=== PATIENT | female | born 1965 | race Caucasian/White ===

== ENCOUNTER 2020-10-08 04:20 | Inpatient (IN) | payer MEDICARE, MEDICAID, SELFPAY ==
--- NOTE | ~2020-10-08 | CT_ITS ---
EXAMINATION: CT ABDOMEN AND PELVIS WITH CONTRAST CLINICAL INFORMATION: Persistent flank pain. COMPARISON: CT abdomen and pelvis 10/08/2020 TECHNIQUE: Multidetector volumetric images were obtained from the superior aspect of the liver through the pubic symphysis following administration 85 mL of Omnipaque 350 intravenous contrast. Sagittal and coronal reformatted images were obtained on the technologist's workstation. Oral contrast: No. This CT examination was performed using dose optimization techniques as appropriate, variously including the following: *Automated exposure control *Adjustment of mA and/or kV according to patient size (this includes techniques or standardized protocols for targeted exams where dose is matched to indication/reason for exam; i.e. extremities or head) *Use of iterative reconstruction technique DLP: 284 mGy-cm FINDINGS: LUNG BASES: There is new left lower lobe subsegmental atelectasis and small left pleural effusion. LIVER, GALLBLADDER, AND BILIARY TREE: Extensive polycystic disease of the liver is again noted. There is no biliary duct dilatation. The gallbladder is unremarkable with no evidence of radiopaque gallstones, gallbladder wall thickening, or obvious pericholecystic inflammatory changes. PANCREAS: Unremarkable. SPLEEN: Unremarkable. ADRENAL GLANDS: Unremarkable. KIDNEYS AND URETERS: Extensive polycystic kidney disease is again noted. This includes simple-appearing cysts and hyperdense hemorrhagic cysts. There are a few scattered calcifications. There is no hydronephrosis. There are no ureteral calculi. There is worsening streaky inflammatory change around the superior pole of the left kidney. BLADDER: Unremarkable. GASTROINTESTINAL TRACT: The small and large bowel are unremarkable. The appendix is normal. ABDOMINAL WALL: There is a stable fat-containing umbilical hernia. LYMPH NODES: There is a slight increase in size in the left periaortic lymph nodes, the largest of which measures 1.7 cm in diameter, likely reactive. VASCULAR: Unremarkable. PELVIC VISCERA: There is a new moderate amount of free fluid in the pelvis. OSSEOUS STRUCTURES: Unremarkable. CT/CT abdomen pelvis w con IMPRESSION: 1. New mild left lower lobe subsegmental atelectasis and small left pleural effusion. 2. Worsening perinephric inflammatory changes around the superior pole of the left kidney. Consider pyelonephritis. 3. Slight increase in left para-aortic lymph nodes which are likely reactive. 4. New moderate amount of free fluid in the pelvis.
--- NOTE | ~2020-10-08 | CT_ITS ---
EXAMINATION: CT ABDOMEN AND PELVIS WITHOUT CONTRAST CLINICAL INFORMATION: Left flank pain. History of kidney abscess and polycystic disease. COMPARISON: None TECHNIQUE: Multidetector volumetric imaging was performed from the superior aspect of the liver through the pubic symphysis. This CT examination was performed using dose optimization techniques as appropriate, variously including the following: Automated exposure control. Adjustment of mA and/or kV according to patient size (this includes techniques or standardized protocols for targeted exams where dose is matched to indication/reason for exam; i.e. extremities or head). Use of iterative reconstruction technique. DLP: 385 mGy-cm FINDINGS: LUNG BASES: The visualized lung bases are unremarkable. LIVER, GALLBLADDER, AND BILIARY TREE: There are multiple liver cysts. The largest measures 6.5 cm. The gallbladder is normal. There is no biliary duct dilatation. PANCREAS: Unremarkable. SPLEEN: Unremarkable. ADRENAL GLANDS: Unremarkable. KIDNEYS AND URETERS: Both kidneys are enlarged and have multiple cysts consistent with known diagnosis of polycystic kidney disease. Both kidneys measure approximately 14 cm in length. There are multiple bilateral simple cysts. Largest right simple cyst measures 5 cm in the upper pole. Largest left simple cyst measures 3.5 x 4.5 cm in the upper pole. There are multiple round high attenuation lesions in both kidneys. These may represent complex or hyperdense cysts. There are several left renal stones. There are 2 adjacent 7 mm peripheral calcifications in the cortex of the lower pole of the left kidney. It is uncertain whether these represent stones or are related to cysts or cortical calcifications. There are smaller 2 to 3 mm left upper and lower pole renal stones. No hydronephrosis, ureteral dilatation or ureteral stone is seen. There is no perinephric collection. There is mild stranding of the perinephric fat and thickening of the pararenal fascia adjacent to the upper pole of the left kidney. BLADDER: Unremarkable. GASTROINTESTINAL TRACT: The small and large bowel are unremarkable. The appendix is unremarkable. ABDOMINAL WALL: There is a small umbilical hernia containing fat. LYMPH NODES: There are small retroperitoneal and small bowel mesentery lymph nodes. No enlarged lymph nodes are seen. VASCULAR: Unremarkable. PELVIC VISCERA: Unremarkable. OSSEOUS STRUCTURES: Unremarkable. CT/CT abdomen pelvis wo con IMPRESSION: Enlarged kidneys with multiple cysts compatible with patient's diagnosis of polycystic kidney disease. Some cysts appear to represent simple cysts. There are multiple round high attenuation lesions probably representing complex cysts. Left renal stones. No hydronephrosis, ureteral dilatation or ureteral stone seen. Mild perinephric stranding and thickening of the perinephric fascia adjacent to the upper pole of the left kidney. Multiple liver cysts.
[2020-10-08 04:55] VITALS: BP 152/92; PULSE 92; RESP 22; TEMP 37.5; O2SAT 98; BMI 42.2
--- NOTE | 2020-10-08 05:06 | PC.NURSE ---
pt a&O. pt in position guarding llq. pt reports 10/10 pain. partner at the bedside. provider aware. Will continue to monitor.
[2020-10-08] MEDS: ondansetron HCL 4 MG/2 ML VIAL IVPUSH ×2 (06:33→20:45)
[2020-10-08] MEDS: 0.9 % Sodium Chloride 1,000 ML 999 ML IV (06:33)
[2020-10-08 06:43] LABS: Basophils Percent Auto 0.2 % (0-2); Eosinophils Percent Auto 0.1 % (0-4); Hematocrit 39.9 % (37-47); Hemoglobin 13.7 g/dl (12.0-16.0); Imm Gran Pct Auto 0.5 % (0.0-0.4); Lymphocytes Absolute Auto 0.7 X10*3/uL (1.2-4.9); Lymphocytes Percent Auto 3.8 % (20-40); MANUAL DIFF FLAG SCAN; Mean Corpuscular HGB Conc 34.3 g/dl (31.0-35.0); Mean Corpuscular Hemoglobin 32.5 pg (27.0-33.0); Mean Corpuscular Volume 94.8 fL (80-98); Mean Platelet Volume 10.1 fL (9.4-12.3); Monocytes Absolute Auto 0.9 X10*3/uL (0.1-1.2); Monocytes Percent Auto 4.9 % (2-11); Neutrophils Absolute Auto 16.6 X10*3/uL (2.0-8.3); Neutrophils Percent Auto 90.5 % (45-73); Platelet Count 256 X10*3/uL (160-400); Red Blood Count 4.21 X10*6/uL (4.20-5.50); Red Cell Distribution Width 12.6 % (11.0-16.0); SCAN SMEAR FLAG 1; White Blood Count 18.3 X10*3/uL (4.8-10.8)
[2020-10-08 06:45] VITALS: RESP 22
[2020-10-08] MEDS: fentaNYL citrate/PF 100 MCG/2 ML VIAL 25 MCG IVPUSH (06:45)
--- NOTE | 2020-10-08 06:50 | PC.NURSE ---
pt continues to have abd pain medicated per mar. Iv placed, labs drawn. significant other at the bedside.
[2020-10-08 07:03] LABS: Alanine Aminotransferase 15 U/L (0-31); Albumin Level 4.4 g/dL (3.5-5.0); Alkaline Phosphatase 73 U/L (39-117); Anion Gap 13 (12-20); Aspartate Amino Transferase 19 U/L (5-31); Bilirubin Total 0.5 mg/dL (0.0-1.0); Blood Urea Nitrogen 18 mg/dL (9-16); Calcium 9.7 mg/dL (8.4-10.2); Carbon Dioxide 23 mmol/L (22-29); Chloride 108 mmol/L (96-108); Creatinine Clr Calc Pharmacy 55.6; Estimated Glomerular Filt Rate 37; Glucose Random 150 mg/dL (60-115); Lipase 15 U/L (8-78); Potassium 4.1 mmol/L (3.3-5.1); Sodium 140 mmol/L (135-145); Total Protein 6.4 g/dL (6.5-8.0)
[2020-10-08 07:33] LABS: SLIDE REVIEW VERIFIED
--- NOTE | 2020-10-08 08:07 | ED.ABDPAIN ---
HPI - Abdominal Pain General Chief Complaint: Abdominal Pain Stated Complaint: cyst Time Seen by Provider: 10/08/20 06:18 Source: patient and other Mode of arrival: ambulatory History of Present Illness HPI narrative: 55-year-old female with history MS, ADPKD who presents with acute, severe onset left flank pain associated with chills and multiple episodes of nonbloody/nonbilious vomiting but denies any fevers, diarrhea, urinary pain/burning/frequency. She otherwise denies any recent cough and states that she has received both of her COVID-19 vaccines. In addition, patient endorses that she has had renal cysts rupture as well as prior episodes abscesses. Related Data Allergies Allergy/AdvReac Type Severity Reaction Status Date / Time ciprofloxacin [From Cipro] AdvReac Severe Blister Verified 10/08/20 06:25 ferrous fumarate AdvReac Severe Anaphylaxis Verified 10/08/20 06:25 glatiramer (copolymer 1) AdvReac Severe Blister Verified 10/08/20 06:25 [From Copaxone] Sulfa (Sulfonamide AdvReac Severe Blister Verified 10/08/20 06:25 Antibiotics) bupropion [From Wellbutrin] AdvReac Mild Unknown Verified 10/08/20 06:25 Review of Systems Review of Systems Pertinent positives and negatives as stated in HPI 10 point review of systems is otherwise negative. Physical Exam Vital Signs: Vital Signs: Last Vital Signs Temp 99.5 F 10/08/20 04:55 Pulse 92 10/08/20 04:55 Resp 22 H 10/08/20 06:45 BP 152/92 H 10/08/20 04:55 Pulse Ox 98 10/08/20 04:55 Body Mass Index 42.2 VITAL SIGNS: Reviewed. GENERAL: Well developed, well nourished, moderate to severe distress. HEAD: Normocephalic/atraumatic EYES: PERRLA, EOMI EARS: Ext canals without abnormality, TMs non-bulging and non-erythematous NOSE: Nares patent bilateral OROPHARYNX: no oral lesions noted, posterior pharynx clear, dry mucosa NECK: Supple, no adenopathy LUNGS: Normal breath sounds. No adventitious sounds or accessory muscle use. SpO2<98> CARDIOVASCULAR: Regular rate and rhythm without noted murmurs, no JVD or lower extremity edema. ABDOMEN: Soft, tenderness on palpation over left upper quadrant, non-distended with bowel sounds, voluntary guarding SKIN: Inspection of the skin reveals no rashes NEUROLOGIC: Alert and oriented x 4. Strength and sensation to light touch were grossly intact x 4. Course Course Course Narrative: 55-year-old female with history and clinical presentation concerning for possible rupture versus abscess of kidney. Patient provided with pain control, IV fluids, and antiemetics. Review all investigations suggestive acute left renal pathology, patient has received antibiotics, lactic acid, as well as blood cultures. In addition, patient has received pain medication, IV fluids, and antiemetics and on re-evaluation she remains hemodynamically stable and reports improvement in her pain level and is no longer nauseous. Awaiting CT scan, however patient will be admitted. Signed out to Dr Cook for CT scan results. MDM - Abdominal Pain Lab Data Result diagrams: 10/08/20 06:35 10/08/20 06:35 Labs: Lab Results 10/08/20 10/08/20 10/08/20 Range/Units 06:35 06:35 08:04 WBC 18.3 H (4.8-10.8) X10*3/uL RBC 4.21 (4.20-5.50) X10*6/uL Hgb 13.7 (12.0-16.0) g/dl Hct 39.9 (37-47) % MCV 94.8 (80-98) fL MCH 32.5 (27.0-33.0) pg MCHC 34.3 (31.0-35.0) g/dl RDW 12.6 (11.0-16.0) % Plt Count 256 (160-400) X10*3/uL MPV 10.1 (9.4-12.3) fL Immature Gran % (Auto) 0.5 H (0.0-0.4) % Neut % (Auto) 90.5 H (45-73) % Lymph % (Auto) 3.8 L (20-40) % [place] % (Auto) 4.9 (2-11) % Eos % (Auto) 0.1 (0-4) % Baso % (Auto) 0.2 (0-2) % Lymph # (Auto) 0.7 L (1.2-4.9) X10*3/uL [place] # (Auto) 0.9 (0.1-1.2) X10*3/uL Eos # (Auto) 0.0 (0.0-0.4) X10*3/uL Baso # (Auto) 0.0 (0.0-0.2) X10*3/uL Abs Immat Gran (auto) 0.10 H (0.00-0.03) X10*3/uL Absolute Neuts (auto) 16.6 H (2.0-8.3) X10*3/uL Absolute Nucleated RBC 0.000 (0.0-0.012) X10*3/uL Nucleated RBC % (auto) 0.0 (0.0-0.2) /100WBC Smear Tech's Comments VERIFIED Sodium 140 (135-145) mmol/L Potassium 4.1 (3.3-5.1) mmol/L Chloride 108 (96-108) mmol/L Carbon Dioxide 23 (22-29) mmol/L Anion Gap 13 (12-20) BUN 18 H (9-16) mg/dL Creatinine 1.48 H (0.5-1.4) mg/dL Estim Creat Clear Calc 55.6 Estimated GFR 37 Random Glucose 150 H (60-115) mg/dL Lactic Acid 1.6 (0.5-2.0) mmol/L Calcium 9.7 (8.4-10.2) mg/dL Total Bilirubin 0.5 (0.0-1.0) mg/dL AST 19 (5-31) U/L ALT 15 (0-31) U/L Alkaline Phosphatase 73 (39-117) U/L Total Protein 6.4 L (6.5-8.0) g/dL Albumin 4.4 (3.5-5.0) g/dL Lipase 15 (8-78) U/L COVID-19 ([facility]) (Negative) COVID-19 Clin Com 10/08/20 Range/Units 08:25 WBC (4.8-10.8) X10*3/uL RBC (4.20-5.50) X10*6/uL Hgb (12.0-16.0) g/dl Hct (37-47) % MCV (80-98) fL MCH (27.0-33.0) pg MCHC (31.0-35.0) g/dl RDW (11.0-16.0) % Plt Count (160-400) X10*3/uL MPV (9.4-12.3) fL Immature Gran % (Auto) (0.0-0.4) % Neut % (Auto) (45-73) % Lymph % (Auto) (20-40) % [place] % (Auto) (2-11) % Eos % (Auto) (0-4) % Baso % (Auto) (0-2) % Lymph # (Auto) (1.2-4.9) X10*3/uL [place] # (Auto) (0.1-1.2) X10*3/uL Eos # (Auto) (0.0-0.4) X10*3/uL Baso # (Auto) (0.0-0.2) X10*3/uL Abs Immat Gran (auto) (0.00-0.03) X10*3/uL Absolute Neuts (auto) (2.0-8.3) X10*3/uL Absolute Nucleated RBC (0.0-0.012) X10*3/uL Nucleated RBC % (auto) (0.0-0.2) /100WBC Smear Tech's Comments Sodium (135-145) mmol/L Potassium (3.3-5.1) mmol/L Chloride (96-108) mmol/L Carbon Dioxide (22-29) mmol/L Anion Gap (12-20) BUN (9-16) mg/dL Creatinine (0.5-1.4) mg/dL Estim Creat Clear Calc Estimated GFR Random Glucose (60-115) mg/dL Lactic Acid (0.5-2.0) mmol/L Calcium (8.4-10.2) mg/dL Total Bilirubin (0.0-1.0) mg/dL AST (5-31) U/L ALT (0-31) U/L Alkaline Phosphatase (39-117) U/L Total Protein (6.5-8.0) g/dL Albumin (3.5-5.0) g/dL Lipase (8-78) U/L COVID-19 ([facility]) Negative (Negative) COVID-19 Clin Com See Note Discharge Plan Discharge Clinical Impression: Structural abnormality of kidney [facility] Past Medical History Source: nursing notes reviewed Social History Social History Alcohol intake: never Patient Tobacco Use Status: Current everyday Tobacco user Use of substances other than those prescribed or required for medical reasons: No Advance Directives: No Advance Directives Information Provided: Yes
[2020-10-08] MEDS: HYDROmorphone HCl 0.5 MG/0.5 ML SYRINGE IVPUSH (08:09)
[2020-10-08] MEDS: cefTRIAXone sodium 1 GM in 0.9 % Sodium Chloride 50 ML IV (08:12)
[2020-10-08 08:25] LABS: Lactic Acid 1.6 mmol/L (0.5-2.0)
[2020-10-08 08:44] LABS: COVID-19 Test Negative (Negative)
[2020-10-08] MEDS: HYDROmorphone HCl 2 MG/ML VIAL 1 MG IVPUSH (09:55)
[2020-10-08 10:29] VITALS: BP 121/71; PULSE 96; RESP 15; TEMP 36.9; O2SAT 97
--- NOTE | 2020-10-08 14:05 | PM.IMHP ---
History of Present Illness Date of Service: 10/08/20 Chief Complaint: L flank pain This is a 55 yo F with a PMH as outlined below who presents to the hospital with complaints of L flank pain of 3 days duration. She reports that she was in her usual state of health, but about 3 days prior to admission, she noticed that she started having L flank discomfort which progressed over the subsequent days to the point that she was unable to keep anything down and was laying in bed. At the urging of her boyfriend (who is bedside), she came to the emergency room. She denies any associated dysuria, urgency, frequecy. She denies any hematuria. She denies any abodminal pain. She does endorse nausea and vomiting, which started as her pain severity progressed. She endorses subjective fevers (which she reports she has when she is in pain) and diarrhea (which she endorses is chronic secondary to her IBS). Patients work up in the ED revealed a leukocytosis of 18k with a left shift. Her BMP was essentially benign. She underwent a CT scan of the abdomen and pelvis which showed her known polycystic kidneys. There was no urteral stones, dilatation or hydronephrosis. Mild perinephric stranding was also noted (see full report). The ED team discussed the case d/w Urology who felt possibility of a ruputured cyst with hemorrhage. Despite 3 doses of IV narcotics, she felt no pain relief. She will be admitted for further pain management as well the possibility of concurrent pyelonephritis / cyst hemorrhage. Review of Systems Review of Systems: General - subjective fevers HEENT -denies blurred vision, denies headache, denies sore throat Cardiovascular - denies chest pain or palpitations, denies edema Respiratory - denies shortness of breath, coughing, wheezing Gastrointestinal - no abdominal pain, +nausea/vomiting; +chronic diarrhea - L flank pain, no dysuria, no frequency or urgency Musculoskeletal - denies back pain, denies hip pain, denies knee pain, denies shoulder pain Neurological - denies any focal weakness or numbness Skin, denies any bruising or redness Psychiatric - denies any suicidal ideation, hallucinations, homicidal ideation Endocrinology - denies intolerance to hot / cold temperatures [facility] Medical History (Updated 10/08/20 @ 14:50 by Adrian Gil MD) 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 Bipolar disorder Brain aneurysm Hypertension Liver cyst Nephrolithiasis Relapsing remitting multiple sclerosis Vitamin D deficiency Family History (Updated 10/08/20 @ 14:31 by Adrian Gil MD) Other ADPKD (autosomal dominant polycystic kidney disease) Social History Alcohol intake: never Patient Tobacco Use Status: Current everyday Tobacco user Use of substances other than those prescribed or required for medical reasons: No Advance Directives: No Advance Directives Information Provided: Yes Meds Allergies Allergy/AdvReac Type Severity Reaction Status Date / Time ciprofloxacin [From Cipro] AdvReac Severe Blister Verified 10/08/20 06:25 ferrous fumarate AdvReac Severe Anaphylaxis Verified 10/08/20 06:25 glatiramer (copolymer 1) AdvReac Severe Blister Verified 10/08/20 06:25 [From Copaxone] Sulfa (Sulfonamide AdvReac Severe Blister Verified 10/08/20 06:25 Antibiotics) bupropion [From Wellbutrin] AdvReac Mild Unknown Verified 10/08/20 06:25 Physical Exam Vital Signs and Narrative: Vital Signs: Last Vital Signs Temp 98.5 F 10/08/20 10:29 Pulse 96 10/08/20 10:29 Resp 15 10/08/20 10:29 BP 121/71 10/08/20 10:29 Pulse Ox 97 10/08/20 10:29 Body Mass Index 42.2 Const: Other: Constitutional - Awake and Alert, In pain Eyes - PERRLA, EOMI Cardiovascular - S1S2, RRR, No edema Respiratory - Normal lung expansion, Normal respiratory effort, No respiratory distress, CTA bilaterally Gastrointestinal - NT / ND; +BS; No rebound or guarding - L CVA tenderness Extremities - no calf tenderness bilaterally, no swelling Musculoskeletal - Normal inspection, normal ROM Skin - Warm/Dry Neurological - Alert & oriented x3, No focal deficit Psychological - Appropriate affect Results Labs CBC and Chem 7: 10/08/20 06:35 10/08/20 06:35 Labs: Laboratory Results - last 24 hr 10/08/20 10/08/20 10/08/20 06:35 06:35 08:04 MCV 94.8 MCH 32.5 MCHC 34.3 RDW 12.6 Plt Count 256 MPV 10.1 Immature Gran % (Auto) 0.5 H Neut % (Auto) 90.5 H Lymph % (Auto) 3.8 L [place] % (Auto) 4.9 Eos % (Auto) 0.1 Baso % (Auto) 0.2 Lymph # (Auto) 0.7 L [place] # (Auto) 0.9 Eos # (Auto) 0.0 Baso # (Auto) 0.0 Abs Immat Gran (auto) 0.10 H Absolute Neuts (auto) 16.6 H Absolute Nucleated RBC 0.000 Nucleated RBC % (auto) 0.0 Smear Tech's Comments VERIFIED Anion Gap 13 Estim Creat Clear Calc 55.6 Estimated GFR 37 Random Glucose 150 H Lactic Acid 1.6 Calcium 9.7 Total Bilirubin 0.5 AST 19 ALT 15 Alkaline Phosphatase 73 Total Protein 6.4 L Albumin 4.4 Lipase 15 COVID-19 ([facility]) COVID-19 Clin Com 10/08/20 08:25 MCV MCH MCHC RDW Plt Count MPV Immature Gran % (Auto) Neut % (Auto) Lymph % (Auto) [place] % (Auto) Eos % (Auto) Baso % (Auto) Lymph # (Auto) [place] # (Auto) Eos # (Auto) Baso # (Auto) Abs Immat Gran (auto) Absolute Neuts (auto) Absolute Nucleated RBC Nucleated RBC % (auto) Smear Tech's Comments Anion Gap Estim Creat Clear Calc Estimated GFR Random Glucose Lactic Acid Calcium Total Bilirubin AST ALT Alkaline Phosphatase Total Protein Albumin Lipase COVID-19 ([facility]) Negative COVID-19 Clin Com See Note Imaging Radiologist's Impressions: Impressions Abdomen/Pelvis CT 10/08/20 07:03 IMPRESSION: Enlarged kidneys with multiple cysts compatible with patient's diagnosis of polycystic kidney disease. Some cysts appear to represent simple cysts. There are multiple round high attenuation lesions probably representing complex cysts. Left renal stones. No hydronephrosis, ureteral dilatation or ureteral stone seen. Mild perinephric stranding and thickening of the perinephric fascia adjacent to the upper pole of the left kidney. Multiple liver cysts. Assessment and Plan (1) Intractable pain: Status: Acute This is a 55 yo F with a PMH of ADPKD, MS, migranes who presents to the ED with complaints of progressive L pain of 3 days duration. Patients work up in the ED is concerning for a ruptured renal cysts as well as possible pyelonephritis. She will be admitted for further work up. 1. Intractable L flank pain patient received IV narcotics x 3 doses. Required IV dilaudid 1mg which gave her about 2-3 hours of relief, but the pain returned. will start IV dilaudid 1mg q4 hours PRN 2. L evelia-nephric stranding concern of pyelo vs ruptured cysts vs bleed check h/h this afternoon will consult urology empiric IV rocephin -- no evidence of sepsis at this time 3. ADPKD / CKD, likely stage 2/3 monitor renal function 4. HTN resume home meds once med rec done continue her baseline meds, as appropriate -- once med rec done. Full Code DVT pptx, Mechanical in light of possible hemorrhagic cyst Due to the severity of the patients pain, along with the potential for rutpured cyst/hemorrhage, possible pyelonephritis - I anticipate that she will need at least 2 midnights in the hospital. Quality Stroke Does the patient have a stroke diagnosis?: No VTE Prior VTE?: No VTE Risk Level:: Medical - moderate - high VTE Device Contraindication: N/A - Device Ordered VTE Drug Contraindication: Treatment Not Indicated
[2020-10-08] MEDS: HYDROmorphone HCl 0.5 MG/0.5 ML SYRINGE 1 MG IVPUSH ×2 (14:24→18:24)
[2020-10-08] MEDS: Lactated Ringers 1,000 ML 100 ML IVCONT ×2 (14:24→18:24)
--- NOTE | 2020-10-08 15:34 | PHA.MEDREC ---
Pharmacy Consult ? Medication Reconciliation Pharmacy has completed the medication reconciliation.\ Elke Beard, PharmD [phone]
[2020-10-08 16:00] VITALS: BP 116/57; PULSE 68; TEMP 38.1; O2SAT 96
[2020-10-08] MEDS: 0.9 % Sodium Chloride Flush 3 ML SYRINGE IVFLUSH (18:24)
[2020-10-08] MEDS: Acetaminophen 325 MG TABLET 650 MG PO (20:45)
[2020-10-09] VITALS (7 sets, daily range): BP systolic 100–136; BP diastolic 55–66; PULSE 80–86; RESP 14–19; TEMP 36.5–37.2; O2SAT 98–99
[2020-10-09] MEDS: HYDROmorphone HCl 0.5 MG/0.5 ML SYRINGE 1 MG IVPUSH ×6 (00:45→22:34)
[2020-10-09 07:11] LABS: Basophils Percent Auto 0.2 % (0-2); Eosinophils Percent Auto 0.1 % (0-4); Hematocrit 33.6 % (37-47); Hemoglobin 11.5 g/dl (12.0-16.0); Imm Gran Pct Auto 0.6 % (0.0-0.4); Lymphocytes Absolute Auto 1.1 X10*3/uL (1.2-4.9); Lymphocytes Percent Auto 6.6 % (20-40); MANUAL DIFF FLAG NO; Mean Corpuscular HGB Conc 34.2 g/dl (31.0-35.0); Mean Corpuscular Hemoglobin 32.4 pg (27.0-33.0); Mean Corpuscular Volume 94.6 fL (80-98); Mean Platelet Volume 10.7 fL (9.4-12.3); Monocytes Percent Auto 6.1 % (2-11); Neutrophils Absolute Auto 14.1 X10*3/uL (2.0-8.3); Neutrophils Percent Auto 86.4 % (45-73); Platelet Count 188 X10*3/uL (160-400); Red Blood Count 3.55 X10*6/uL (4.20-5.50); Red Cell Distribution Width 12.8 % (11.0-16.0); White Blood Count 16.3 X10*3/uL (4.8-10.8)
[2020-10-09 07:52] LABS: Anion Gap 13 (12-20); Blood Urea Nitrogen 11 mg/dL (9-16); Calcium 8.6 mg/dL (8.4-10.2); Carbon Dioxide 22 mmol/L (22-29); Chloride 106 mmol/L (96-108); Creatinine Clr Calc Pharmacy 73.5; Estimated Glomerular Filt Rate 51; Glucose Random 140 mg/dL (60-115); Potassium 3.9 mmol/L (3.3-5.1); Sodium 137 mmol/L (135-145)
[2020-10-09] MEDS: Lactated Ringers 1,000 ML 100 ML IVCONT ×2 (08:18→18:08)
[2020-10-09] MEDS: ondansetron HCL 4 MG/2 ML VIAL IVPUSH ×4 (08:21→22:34)
[2020-10-09] MEDS: cefTRIAXone sodium 1 GM in 0.9 % Sodium Chloride 50 ML IV (08:29)
[2020-10-09 10:48] LABS: Glucose Urine UA NEG (NEG); Leukocyte Esterase Urine TRACE (NEG); Nitrite Urine NEG (NEG); UACC Culture Trigger YES; Urine Blood TRACE (NEG); Urine Ketones NEG (NEG); Urine Protein NEG (NEG-TRACE)
[2020-10-09 10:51] LABS: Appearance Urine HAZY; Color Urine YELLOW
[2020-10-09 10:59] LABS: Mucus Urine TRACE /LPF; Squamous Epithelial Cell Urine 1+ /LPF
--- NOTE | 2020-10-09 13:06 | HO.PM.IMPN ---
Subjective Subjective Date of Service: 10/09/20 Interval History: Seen and examined this morning Follow-up for abdominal pain. Reports ongoing left-sided abdominal pain. Nausea no vomiting. Denies fever, chills Review of Systems Review of Systems: Yes all other systems are reviewed and are negative Constitutional Constitutional: Denies chills and Denies fever(s) Cardiovascular Cardiovascular: Denies chest pain Respiratory Respiratory: Denies cough Physical Exam Vital Signs: Vital Signs: Last Vital Signs Temp 98.2 F 10/09/20 11:25 Pulse 85 10/09/20 11:25 Resp 16 10/09/20 11:25 BP 112/57 L 10/09/20 11:25 Pulse Ox 99 10/09/20 11:25 Body Mass Index 42.2 Const: Nutritional Appearance: well nourished Orientation/consciousness: patient oriented x3 HENMT: Head: Yes normocephalic and Yes atraumatic Eyes: Sclerae: sclerae normal Chest: Chest palpation & inspection: normal inspection of the chest Resp: Effort & Inspection: normal respiratory effort and no respiratory distress Cardio: Rate: regular rate Rhythm: regular rhythm GI: Other: pain with very minimal palpation, primarily left side of abdomen. Nondistended. Positive bowel sounds. No CVA tenderness Palpation (GI): Soft to palpation Neuro: General: patient oriented x3 Cranial nerves: Yes CN's II-XII intact bilaterally and Yes Bilaterally intact EOM present Objective Data Current Medications Generic Name Dose Route Start Last Admin Trade Name Freq PRN Reason Stop Dose Admin Acetaminophen 650 mg 10/08/20 14:00 10/08/20 20:45 Acetaminophen 325 Mg Tablet PO 650 mg Q6H PRN Administration Pain, Mild (Pain Scale 1-3) Bupropion HCl 150 mg 10/09/20 09:00 10/09/20 08:12 Bupropion Hcl Xl 150 Mg Tab.Er.24h PO Not Given DAILY SURYA Clonazepam 0.5 mg 10/08/20 15:36 Clonazepam 0.5 Mg Tablet PO BEDTIME PRN Insomnia Cyclobenzaprine HCl 10 mg 10/08/20 15:36 Cyclobenzaprine Hcl 10 Mg Tablet PO BEDTIME PRN Cramps Folic Acid 1 mg 10/09/20 09:00 10/09/20 08:12 Folic Acid 1 Mg Tablet PO Not Given DAILY SURYA Hydromorphone HCl 1 mg 10/08/20 14:00 10/09/20 09:30 Hydromorphone Hcl 0.5 Mg/0.5 Ml Syringe IVPUSH 1 mg Q4H PRN Administration Pain, Severe (Pain Scale 7-10) Protocol Ceftriaxone Sodium 1 gm/ 50 mls @ 100 mls/hr 10/09/20 08:00 10/09/20 09:11 Sodium Chloride IV Infused Q24H SURYA Infusion Lactated Ringer's 1,000 mls @ 100 mls/hr 10/08/20 14:00 10/09/20 08:18 Lr IVCONT 100 mls/hr .Q10H SURYA Administration Non-Formulary Medication 1 tab 10/08/20 21:00 Bupropion Hcl PO BEDTIME [facility] Ondansetron HCl 4 mg 10/08/20 18:58 10/09/20 08:21 Ondansetron Hcl 4 Mg/2 Ml Vial IVPUSH 4 mg Q4H PRN Administration nausea/vomtiing Pharmacy Consult 1 each 10/08/20 14:47 Consult Rx Perform Med Rec MISCELLANE ONCE PRN Consult order Sodium Chloride 3 ml 10/08/20 16:00 10/09/20 07:10 0.9 % Sodium Chloride Flush 3 Ml Syringe IVFLUSH Not Given QSHIFT [facility] Valacyclovir HCl 1,000 mg 10/09/20 09:00 10/09/20 08:12 Valacycyclovir Hcl 1,000 Mg Tablet PO Not Given DAILY [facility] Labs CBC & Chem 7: 10/09/20 06:39 10/09/20 06:39 Labs: Laboratory Results - last 24 hr 10/09/20 10/09/20 10/09/20 06:39 06:39 10:30 MCV 94.6 MCH 32.4 MCHC 34.2 RDW 12.8 Plt Count 188 D MPV 10.7 Immature Gran % (Auto) 0.6 H Neut % (Auto) 86.4 H Lymph % (Auto) 6.6 L [place] % (Auto) 6.1 Eos % (Auto) 0.1 Baso % (Auto) 0.2 Lymph # (Auto) 1.1 L [place] # (Auto) 1.0 Eos # (Auto) 0.0 Baso # (Auto) 0.0 Abs Immat Gran (auto) 0.10 H Absolute Neuts (auto) 14.1 H Absolute Nucleated RBC 0.000 Nucleated RBC % (auto) 0.0 Anion Gap 13 Estim Creat Clear Calc 73.5 Estimated GFR 51 Random Glucose 140 H Calcium 8.6 D Urine Color YELLOW Urine Appearance HAZY Urine pH 6.0 Ur Specific [place] 1.020 Urine Protein NEG Urine Glucose (UA) NEG Urine Ketones NEG Urine Blood TRACE Urine Nitrite NEG Ur Leukocyte Esterase TRACE H Urine RBC 1-4 Urine WBC 10-14 H Ur Squamous Epith Cells 1+ Urine Bacteria NONE Urine Mucus TRACE Microbiology Microbiology Results: Microbiology 10/08/20 08:04 Blood Culture - Preliminary Blood - Venous No growth after 24 hours. 10/08/20 08:04 Blood Culture - Preliminary Blood - Venous No growth after 24 hours. Assessment and Plan (1) Intractable pain: Status: Acute Assessment and Plan: This is a 55 yo F with a PMH of ADPKD, MS, migranes who presents to the ED with complaints of progressive L pain of 3 days duration. Patients work up in the ED is concerning for a ruptured renal cysts as well as possible pyelonephritis. She will be admitted for further work up. 1. Intractable L flank pain Reports pain is similar to previous episodes of cyst rupture -continue IV Dilaudid for pain 2. L evelia-nephric stranding concern of pyelo vs ruptured cysts vs bleed -urology consult -urinalysis not highly suggestive of infection however will continue empiric antibiotics until seen by Urology -blood cultures negative to date 3. 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 HTN BP on softer side Will hold Philip -monitor blood pressure closely Mood Continue home medications Full Code DVT pptx, Mechanical in light of possible hemorrhagic cyst Quality Stroke Does the patient have a stroke diagnosis?: No VTE Prior VTE?: No VTE Risk Level:: Medical - moderate - high VTE Device Contraindication: N/A - Device Ordered VTE Drug Contraindication: Treatment Not Indicated
--- NOTE | 2020-10-09 13:20 | MHC.CM.PN ---
Addendum entered by Doretha Waller 10/09/20 13:30: PT PREFERS TO BE CALLED [facility] Original Note: CM MET WITH PT AND HER S/O WHO WAS AT BEDSIDE. PT REPORTS SHE LIVES WITH HER PARTNER AND WAS RECENTLY APPROVED FOR 10.5 HOURS OF COIL WINDER SERVICES PER WEEK WHICH HER CHILD WILL BE PROVIDING. PT REPORTS SHE HAS A CANE, COMMODE, GRAB BARS AND RAILINGS ON BOTH SIDES OF THE STAIRS AT HOME. PT PROVIDED A PAPER WITH ALL OF HER DOCTORS, MEDICATIONS, ALLERGIES, AND RECENT HOSPITALIZATIONS. A COPY WAS PLACED IN CHART. PT REPORTS SHE WAS RECENTLY PRESCRIBED TALVAPTAN BY HER EXTERNAL GRINDER TENDER HOWEVER SHE IS SUPPOSED TO TAKE 4 PILLS A DAY AND THE PHARMACY ONLY GAVE HER 30 PILLS. PT STATES THEY THOUGHT THAT WOULD BE A 30 DAY SUPPLY HOWEVER SHE ALSO REPORTS IT IS NOT A MEDICATION THAT THEY KEEP IN STOCK AT HER PHARMACY. SHE ALSO REPORTS CONCERN THAT THE MED IS NOT SUPPOSED TO BE STARTED OR STOPPED ABRUPTLY AND SHE HAS BEEN OUT AND IT IS NOT CARRIED BY OUR PHARMACY. PT REPORTS SHE DID NOT CHECK OTHER PHARMACIES IN HER COMMUNITY. CM CALLED [facility] IN [place] ([phone]) AND LEARNED THEY DO NOT HAVE IT IN STOCK BUT COULD ORDER IT (THEY WOULD NEED RX) AND HAVE IT THERE FOR SUNDAY. CM ALSO INFORMED IF IT WAS GOING TO BE AN ONGOING MED FOR THE PT, THEY WOULD ORDER IT AHEAD OF TIME SO THAT SHE COULD FILL HER MONTHLY RX. ABOVE INFO RELAYED TO PT. PT DOES NOT HAVE A HCP. INFORMATION AND DOCUMENT PROVIDED IMM DELIVERED CURRENT DC PLAN IS HOME WITH RESUMPTION OF COIL W[employer] SERVICES FAMILY TO TRANSPORT
[2020-10-10] MEDS: HYDROmorphone HCl 0.5 MG/0.5 ML SYRINGE 1 MG IVPUSH ×6 (02:09→23:31)
[2020-10-10] MEDS: Lactated Ringers 1,000 ML 100 ML IVCONT ×2 (06:24→17:03)
[2020-10-10] MEDS: ondansetron HCL 4 MG/2 ML VIAL IVPUSH ×2 (06:35→10:30)
[2020-10-10 07:10] VITALS: BP 121/58; PULSE 81; RESP 16; TEMP 36.3; O2SAT 98
[2020-10-10 08:30] LABS: Hematocrit 33.1 % (37-47); Mean Corpuscular HGB Conc 33.2 g/dl (31.0-35.0); Mean Corpuscular Hemoglobin 32.3 pg (27.0-33.0); Mean Corpuscular Volume 97.1 fL (80-98); Mean Platelet Volume 10.5 fL (9.4-12.3); Platelet Count 193 X10*3/uL (160-400); Red Blood Count 3.41 X10*6/uL (4.20-5.50); Red Cell Distribution Width 12.7 % (11.0-16.0); White Blood Count 14.1 X10*3/uL (4.8-10.8)
[2020-10-10] MEDS: cefTRIAXone sodium 1 GM in 0.9 % Sodium Chloride 50 ML IV (09:09)
[2020-10-10 10:29] VITALS: RESP 18
--- NOTE | 2020-10-10 11:12 | P.PNIM_ITS ---
Subjective Subjective Date of Service: 10/10/20 Interval History: seen and examined this morning no change in abdominal pain, still reporting nausea; doesn't feel that she can eat due to pain no urinary symptoms Review of Systems Review of Systems: Yes all other systems are reviewed and are negative Constitutional Constitutional: Denies chills and Denies fever(s) Cardiovascular Cardiovascular: Denies chest pain Respiratory Respiratory: Denies cough Gastrointestinal Gastrointestinal: Reports abdominal pain, Denies diarrhea and Reports nausea Physical Exam Vital Signs: Vital Signs: Last Vital Signs Temp 97.3 F 10/10/20 07:10 Pulse 81 10/10/20 07:10 Resp 18 10/10/20 10:29 BP 121/58 L 10/10/20 07:10 Pulse Ox 98 10/10/20 07:10 Body Mass Index 42.2 Const: Nutritional Appearance: well nourished Orientation/consciousness: patient oriented x3 HENMT: Head: Yes normocephalic and Yes atraumatic Eyes: Sclerae: sclerae normal Chest: Chest palpation & inspection: normal inspection of the chest Resp: Effort & Inspection: normal respiratory effort and no respiratory distress Cardio: Rate: regular rate Rhythm: regular rhythm GI: Other: pain with minimal palpation, primarily left side of abdomen. Nondistended. Positive bowel sounds. Palpation (GI): Soft to palpation Neuro: General: patient oriented x3 Cranial nerves: Yes CN's II-XII intact bilaterally and Yes Bilaterally intact EOM present Objective Data Current Medications Generic Name Dose Route Start Last Admin Trade Name Freq PRN Reason Stop Dose Admin Acetaminophen 650 mg 10/08/20 14:00 10/08/20 20:45 Acetaminophen 325 Mg Tablet PO 650 mg Q6H PRN Administration Pain, Mild (Pain Scale 1-3) Bupropion HCl 150 mg 10/09/20 09:00 10/10/20 07:33 Bupropion Hcl Xl 150 Mg Tab.Er.24h PO Not Given DAILY SURYA Clonazepam 0.5 mg 10/08/20 15:36 Clonazepam 0.5 Mg Tablet PO BEDTIME PRN Insomnia Cyclobenzaprine HCl 10 mg 10/08/20 15:36 Cyclobenzaprine Hcl 10 Mg Tablet PO BEDTIME PRN Cramps Folic Acid 1 mg 10/09/20 09:00 10/10/20 07:33 Folic Acid 1 Mg Tablet PO Not Given DAILY SURYA Hydromorphone HCl 1 mg 10/08/20 14:00 10/10/20 10:29 Hydromorphone Hcl 0.5 Mg/0.5 Ml Syringe IVPUSH 1 mg Q4H PRN Administration Pain, Severe (Pain Scale 7-10) Protocol Hydromorphone HCl 2 mg 10/10/20 09:14 Hydromorphone Hcl 2 Mg Tablet PO Q6H PRN Pain, Moderate (Pain Scale 4-6 Ceftriaxone Sodium 1 gm/ 50 mls @ 100 mls/hr 10/09/20 08:00 10/10/20 09:51 Sodium Chloride IV Infused Q24H SURYA Infusion Lactated Ringer's 1,000 mls @ 100 mls/hr 10/08/20 14:00 10/10/20 06:24 Lr IVCONT 100 mls/hr .Q10H SURYA Administration Ondansetron HCl 4 mg 10/08/20 18:58 10/10/20 10:30 Ondansetron Hcl 4 Mg/2 Ml Vial IVPUSH 4 mg Q4H PRN Administration nausea/vomtiing Pharmacy Consult 1 each 10/08/20 14:47 Consult Rx Perform Med Rec MISCELLANE ONCE PRN Consult order Sodium Chloride 3 ml 10/08/20 16:00 10/10/20 07:07 0.9 % Sodium Chloride Flush 3 Ml Syringe IVFLUSH Not Given QSHIFT [facility] Valacyclovir HCl 1,000 mg 10/09/20 09:00 10/10/20 07:33 Valacycyclovir Hcl 1,000 Mg Tablet PO Not Given DAILY [facility] Labs CBC & Chem 7: 10/10/20 08:14 10/09/20 06:39 Labs: Laboratory Results - last 24 hr 10/10/20 08:14 MCV 97.1 MCH 32.3 MCHC 33.2 RDW 12.7 Plt Count 193 MPV 10.5 Absolute Nucleated RBC 0.000 Nucleated RBC % (auto) 0.0 Microbiology Microbiology Results: Microbiology 10/08/20 08:04 Blood Culture - Preliminary Blood - Venous No growth after 48 hours. 10/08/20 08:04 Blood Culture - Preliminary Blood - Venous No growth after 48 hours. 10/09/20 Unknown Urine Culture - Final Urine clean catch - Urine khan top No growth. Assessment and Plan (1) Intractable pain: Status: Acute Assessment and Plan: This is a 55 yo F with a PMH of ADPKD, MS, migranes who presents to the ED with complaints of progressive L pain of 3 days duration. Patients work up in the ED is concerning for a ruptured renal cysts as well as possible pyelonephritis. She will be admitted for further work up. Intractable abdominal pain Reports pain is similar to previous episodes of cyst rupture but more severe in nature attempted to convert to po pain medication, patient declined to try po meds b/c she is typically unable to tolerate po narcotics -continue IV Dilaudid for pain, attempt to transition to PO. Limited options for pain control. unable to take nsaids due to kidney disease, tylenol not effective. 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
[2020-10-10 11:45] VITALS: BP 126/58; PULSE 83; RESP 18; TEMP 36.3; O2SAT 97
[2020-10-10] MEDS: HYDROmorphone HCl 2 MG TABLET PO (13:26)
[2020-10-10 15:48] VITALS: BP 127/67; PULSE 86; RESP 18; TEMP 36.6; O2SAT 99
[2020-10-10 23:50] VITALS: BP 135/64; PULSE 86; RESP 16; TEMP 37.1; O2SAT 99
[2020-10-11] MEDS: HYDROmorphone HCl 0.5 MG/0.5 ML SYRINGE 1 MG IVPUSH ×7 (03:41→23:55)
[2020-10-11 05:11] LABS: Hematocrit 31.1 % (37-47); Hemoglobin 10.5 g/dl (12.0-16.0); Mean Corpuscular HGB Conc 33.8 g/dl (31.0-35.0); Mean Corpuscular Hemoglobin 32.1 pg (27.0-33.0); Mean Corpuscular Volume 95.1 fL (80-98); Mean Platelet Volume 10.3 fL (9.4-12.3); Platelet Count 218 X10*3/uL (160-400); Red Blood Count 3.27 X10*6/uL (4.20-5.50); Red Cell Distribution Width 12.4 % (11.0-16.0); White Blood Count 10.1 X10*3/uL (4.8-10.8)
[2020-10-11 05:37] LABS: Anion Gap 12 (12-20); Blood Urea Nitrogen 6 mg/dL (9-16); Calcium 8.3 mg/dL (8.4-10.2); Carbon Dioxide 25 mmol/L (22-29); Chloride 105 mmol/L (96-108); Creatinine Clr Calc Pharmacy 79.1; Estimated Glomerular Filt Rate 55; Glucose Random 115 mg/dL (60-115); Potassium 3.4 mmol/L (3.3-5.1); Sodium 139 mmol/L (135-145)
[2020-10-11] MEDS: ondansetron HCL 4 MG/2 ML VIAL IVPUSH (06:47)
[2020-10-11 08:00] VITALS: BP 134/82; PULSE 84; RESP 16; TEMP 37; O2SAT 98
--- NOTE | 2020-10-11 08:44 | P.CDIC_ITS ---
CDI Concurrent Query Service Date: 10/12/20 Documentation Clarification: Please clarify if you are treating a proba ble/suspected/likely or confirmed: Morbid Obesity Other Obesity, please specify No Obesity No obesity -- weight incorrect in system, repeated weight is 55.8kg and BMI 20.5 Provider Response: Other Other Diagnosis: No obesity -- weight incorrect in system, repeated weight is 55.8kg and BMI 20.5 PLEASE DO NOT DELETE/MODIFY EXISTING CONTENT Additional information is needed in order to code to the highest accuracy and appropriate Severity of Illness (SOI). Please clarify the information noted below in your progress notes and discharge summary. Risk Factors/Clinical Indicators/Treatments HT 5'5 WT 115 kg BMI 42.2 No Nutrition Assessment in EMR CDS: Bernice Warner RN Contact Number: [phone] Please Review the information above and exercise your independent professional judgment in responding to the query. If you concur, pleas document in the PROGRESS NOTES and DISCHARGE SUMMARY. If you do not agree with the query, please document in the query above. THIS QUERY IS PART OF THE PERMANENT MEDICAL RECORD
--- NOTE | 2020-10-11 09:06 | PM.UROCN ---
History of Present Illness Consult details Consult date: 10/10/20 Narrative: Candice is a 55-year-old female. Longstanding polycystic kidney disease with multi-cystic kidneys and multi cystic liver. Presents to hospital with intractable left-sided renal colic. Unable to manage with oral pain medications at home. Pain during spasm reaches 9 to 10/10. No relieving factors. Has experienced previous cyst rupture. States this pain is significantly worse than prior episodes. We discussed potential of peripheral cyst rupture or peripheral cyst bleed. CT scan shows marked replacement of renal parenchyma with renal cysts but no evidence of obstructing renal stones. Based on the continued pain recommendation for CT with IV contrast to ensure no urinary leak or other fluid related issues with kidney. Review of Systems Constitutional: Constitutional: Denies chills and Denies fever(s) Cardiovascular: Cardiovascular: Reports no additional cardiovascular complaints and Denies syncope Respiratory: Respiratory: Denies cough Gastrointestinal: Gastrointestinal: Denies abdominal pain and Denies heartburn Genitourinary: Genitourinary: Reports as per HPI and Denies change in libido Neurologic: Denies syncope Psychiatric: Psychiatric: Denies change in libido Endocrine: Endocrine: Denies change in libido [facility] Past Medical History Medical History (Updated 10/11/20 @ 09:10 by Dale Shaw MD) 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 Bipolar disorder Brain aneurysm Hypertension Liver cyst Nephrolithiasis Relapsing remitting multiple sclerosis Vitamin D deficiency Family History Family History (Updated 10/08/20 @ 14:31 by Adrian Gil MD) Other ADPKD (autosomal dominant polycystic kidney disease) Social History Social History Household Members: Spouse and Friend(s) Housing: House Alcohol intake: never Patient Tobacco Use Status: Current everyday Tobacco user Smoked in Last 30 Days: Yes Patient Interested in Nicotine Replacement: No Use of substances other than those prescribed or required for medical reasons: No Currently Displaying Signs/Symptoms of Drug Intoxication Withdrawal: No Have you been hit, kicked, punched, or otherwise hurt by someone within the past year? If so, by whom?: No Do you feel safe in your current relationship?: Yes Is there a partner from a previous relationship who is making you feel unsafe now?: No Are you made to feel afraid or neglected: No Advance Directives: No Advance Directives Information Provided: Yes Do you have thoughts of harming others: None Do you have a plan to hurt others: No Plan Recently lost weight without trying: No Eating poorly because of decreased appetite: Yes : No service: No Current occupational status: unemployed Meds Allergies Allergy/AdvReac Type Severity Reaction Status Date / Time ciprofloxacin [From Cipro] AdvReac Severe Blister Verified 10/08/20 06:25 ferrous fumarate AdvReac Severe Anaphylaxis Verified 10/08/20 06:25 glatiramer (copolymer 1) AdvReac Severe Blister Verified 10/08/20 06:25 [From Copaxone] Sulfa (Sulfonamide AdvReac Severe Blister Verified 10/08/20 06:25 Antibiotics) bupropion [From Wellbutrin] AdvReac Mild Unknown Verified 10/08/20 06:25 Active Medications: Current Medications Generic Name Dose Route Start Last Admin Trade Name Freq PRN Reason Stop Dose Admin Acetaminophen 650 mg 10/08/20 14:00 10/08/20 20:45 Acetaminophen 325 Mg Tablet PO 650 mg Q6H PRN Administration Pain, Mild (Pain Scale 1-3) Bupropion HCl 150 mg 10/09/20 09:00 10/11/20 07:30 Bupropion Hcl Xl 150 Mg Tab.Er.24h PO Not Given DAILY SURYA Clonazepam 0.5 mg 10/08/20 15:36 Clonazepam 0.5 Mg Tablet PO BEDTIME PRN Insomnia Cyclobenzaprine HCl 10 mg 10/08/20 15:36 Cyclobenzaprine Hcl 10 Mg Tablet PO BEDTIME PRN Cramps Folic Acid 1 mg 10/09/20 09:00 10/11/20 07:30 Folic Acid 1 Mg Tablet PO Not Given DAILY SURYA Hydromorphone HCl 1 mg 10/11/20 09:06 Hydromorphone Hcl 0.5 Mg/0.5 Ml Syringe IVPUSH Q3H PRN Pain, Severe (Pain Scale 7-10) Protocol Lactated Ringer's 1,000 mls @ 100 mls/hr 10/08/20 14:00 10/11/20 06:40 Lr IVCONT Infused .Q10H SURYA Infusion Melatonin 3 mg 10/10/20 13:12 Melatonin 3 Mg Tablet PO BEDTIME PRN Sleep Ondansetron HCl 4 mg 10/08/20 18:58 10/11/20 06:47 Ondansetron Hcl 4 Mg/2 Ml Vial IVPUSH 4 mg Q4H PRN Administration nausea/vomtiing Pharmacy Consult 1 each 10/08/20 14:47 Consult Rx Perform Med Rec MISCELLANE ONCE PRN Consult order Sodium Chloride 3 ml 10/08/20 16:00 10/11/20 07:30 0.9 % Sodium Chloride Flush 3 Ml Syringe IVFLUSH Not Given QSHIFT [facility] Valacyclovir HCl 1,000 mg 10/09/20 09:00 10/11/20 07:30 Valacycyclovir Hcl 1,000 Mg Tablet PO Not Given DAILY [facility] Home Medications Medication Instructions Recorded Confirmed Last Taken Type benazepril 40 mg tablet 1 tab PO DAILY 10/08/20 10/08/20 10/07/20 History bupropion HCl 100 mg tablet,12 hr 1 tab PO BEDTIME 10/08/20 10/08/20 10/07/20 History sustained-release bupropion HCl 150 mg 24 hr tablet, 1 tab PO DAILY 10/08/20 10/08/20 10/07/20 History extended release clonazepam 1 mg tablet 0.5 mg PO BEDTIME PRN 10/08/20 10/08/20 Unknown History cyclobenzaprine 10 mg tablet 10 mg PO BEDTIME PRN 10/08/20 10/08/20 Unknown History folic acid 1 mg tablet 1 tab PO DAILY 10/08/20 10/08/20 10/07/20 History iron heme polypeptide 12 mg tablet 12 mg PO DAILY 10/08/20 10/08/20 Unknown History (Joey GROSS) lorazepam 1 mg tablet 1 tab PO DAILY PRN 10/08/20 10/08/20 Unknown History tolvaptan 15 mg tablet 2 tab PO BID 10/08/20 10/08/20 10/07/20 History valacyclovir 1 gram tablet 1 tab PO DAILY 10/08/20 10/08/20 10/07/20 History zolmitriptan 5 mg tablet 5 mg PO DAILY PRN 10/08/20 10/08/20 Unknown History Physical Exam Vital Signs: Vital Signs: Last Vital Signs Temp 98.6 F 10/11/20 08:00 Pulse 84 10/11/20 08:00 Resp 16 10/11/20 08:00 BP 134/82 10/11/20 08:00 Pulse Ox 98 10/11/20 08:00 Body Mass Index 42.2 Const: General: cooperative, healthy appearing, comfortable and no acute distress Orientation/consciousness: patient oriented x3 HENMT: Face and sinus: Yes normal facial exam Mouth: moist mucous membranes Neck: Neck: Yes normal visual inspection, Yes full ROM and Yes trachea midline Chest: Chest palpation & inspection: normal inspection of the chest Resp: Effort & Inspection: normal respiratory effort, able to speak in complete sentences and no respiratory distress GI: Inspection: Yes normal to inspection Back/Spine/Pelvis: Cervical Spine: normal cervical lordosis Thoracic/Lumbar Spine: thoracic and lumbar spine normal to inspection Skin: General skin exam: no rashes or lesions noted Neuro: General: patient oriented x3, gait normal, tone normal and moves all extremities Extrem: General: Yes normal to inspection and Yes capillary refill normal Results Labs Result diagrams: 10/11/20 04:42 10/11/20 04:42 Labs: Abnormal lab results 10/11/20 10/11/20 Range/Units 04:42 04:42 RBC 3.27 L (4.20-5.50) X10*6/uL Hgb 10.5 L (12.0-16.0) g/dl Hct 31.1 L (37-47) % BUN 6 L (9-16) mg/dL Calcium 8.3 L (8.4-10.2) mg/dL Short CBC 10/11/20 Range/Units 04:42 WBC 10.1 (4.8-10.8) X10*3/uL Hgb 10.5 L (12.0-16.0) g/dl Hct 31.1 L (37-47) % Plt Count 218 (160-400) X10*3/uL BMP 10/11/20 04:42 Sodium 139 Potassium 3.4 Chloride 105 Carbon Dioxide 25 BUN 6 L Creatinine 1.04 Calcium 8.3 L Urine 10/09/20 Range/Units 10:30 Urine Color YELLOW Urine Appearance HAZY Urine pH 6.0 (5.0-8.0) Ur Specific [place] 1.020 (1.005-1.025) Urine Protein NEG (NEG-TRACE) MG/DL Urine Glucose (UA) NEG (NEG) MG/DL All other labs normal. Assessment and Plan (1) Intractable pain: Status: Acute (2) Autosomal dominant polycystic kidney disease: Status: Acute CT with IV contrast Procedures Date of Service Date of Service: 10/11/20
--- NOTE | 2020-10-11 10:53 | PM.IMPN ---
Progress Note: A&P (1) Autosomal dominant polycystic kidney disease: Status: Acute (2) Intractable pain: Status: Acute Assessment and Plan: This is a 55 yo F with a PMH of ADPKD, MS, migranes who presents to the ED with complaints of progressive L pain of 3 days duration. Patients work up in the ED is concerning for a ruptured renal cysts as well as possible pyelonephritis. She will be admitted for further work up. Intractable abdominal pain Reports pain is similar to previous episodes of cyst rupture but more severe in nature attempted to convert to po pain medication, patient declined to try po meds b/c she is typically unable to tolerate po narcotics -continue IV Dilaudid for pain, attempt to transition to PO. Limited options for pain control. unable to take nsaids due to kidney disease, tylenol not effective. pt unable to tolerate po narcotics L evelia-nephric stranding ?ruptured cysts vs bleed UCx negative, BCx negative seen by urology rec ct with con nephro consult pending PRATIK/ CKD, likely stage 2/3 monitor renal function within normal limits -continue IVF for now as patient not eating much HTN BP on softer side Will hold Philip -monitor blood pressure closely Mood Continue home medications ? Full Code DVT pptx, Mechanical in light of possible hemorrhagic cyst Subjective Subjective Date of Service: 10/11/20 Review of Systems Follow up renal cyst rupture Still with pain and nausea feels like her pain is not being addressed. Physical Exam Vital Signs: Vital Signs: Last Vital Signs Temp 98.6 F 10/11/20 08:00 Pulse 84 10/11/20 08:00 Resp 16 10/11/20 08:00 BP 134/82 10/11/20 08:00 Pulse Ox 98 10/11/20 08:00 Body Mass Index 42.2 Appearing in no acute distress lung sounds are clear to auscultation heart regular rate rhythm, clear S1, S2 positive bowel sounds, abdomen is soft, tender diffuse neuro patient is alert x3, no focal deficits Objective Data Current Medications Generic Name Dose Route Start Last Admin Trade Name Freq PRN Reason Stop Dose Admin Acetaminophen 650 mg 10/08/20 14:00 10/08/20 20:45 Acetaminophen 325 Mg Tablet PO 650 mg Q6H PRN Administration Pain, Mild (Pain Scale 1-3) Bupropion HCl 150 mg 10/09/20 09:00 10/11/20 07:30 Bupropion Hcl Xl 150 Mg Tab.Er.24h PO Not Given DAILY SURYA Clonazepam 0.5 mg 10/08/20 15:36 Clonazepam 0.5 Mg Tablet PO BEDTIME PRN Insomnia Cyclobenzaprine HCl 10 mg 10/08/20 15:36 Cyclobenzaprine Hcl 10 Mg Tablet PO BEDTIME PRN Cramps Folic Acid 1 mg 10/09/20 09:00 10/11/20 07:30 Folic Acid 1 Mg Tablet PO Not Given DAILY [facility] Hydromorphone HCl 1 mg 10/11/20 09:06 10/11/20 10:06 Hydromorphone Hcl 0.5 Mg/0.5 Ml Syringe IVPUSH 1 mg Q3H PRN Administration Pain, Severe (Pain Scale 7-10) Protocol Lactated Ringer's 1,000 mls @ 100 mls/hr 10/08/20 14:00 10/11/20 06:40 Lr IVCONT Infused .Q10H SURYA Infusion Melatonin 3 mg 10/10/20 13:12 Melatonin 3 Mg Tablet PO BEDTIME PRN Sleep Ondansetron HCl 4 mg 10/08/20 18:58 10/11/20 06:47 Ondansetron Hcl 4 Mg/2 Ml Vial IVPUSH 4 mg Q4H PRN Administration nausea/vomtiing Pharmacy Consult 1 each 10/08/20 14:47 Consult Rx Perform Med Rec MISCELLANE ONCE PRN Consult order Sodium Chloride 3 ml 10/08/20 16:00 10/11/20 07:30 0.9 % Sodium Chloride Flush 3 Ml Syringe IVFLUSH Not Given QSHIFT [facility] Valacyclovir HCl 1,000 mg 10/09/20 09:00 10/11/20 07:30 Valacycyclovir Hcl 1,000 Mg Tablet PO Not Given DAILY [facility] Labs CBC & Chem 7: 10/11/20 04:42 10/11/20 04:42 Labs: Laboratory Results - last 24 hr 10/11/20 10/11/20 04:42 04:42 MCV 95.1 MCH 32.1 MCHC 33.8 RDW 12.4 Plt Count 218 MPV 10.3 Absolute Nucleated RBC 0.000 Nucleated RBC % (auto) 0.0 Anion Gap 12 Estim Creat Clear Calc 79.1 Estimated GFR 55 Random Glucose 115 Calcium 8.3 L Microbiology Microbiology Results: Microbiology 10/08/20 08:04 Blood - Venous Blood Culture - Preliminary No growth after 48 hours. 10/08/20 08:04 Blood - Venous Blood Culture - Preliminary No growth after 48 hours. 10/09/20 Unknown Urine clean catch - Urine khan top Urine Culture - Final No growth. Quality Stroke Does the patient have a stroke diagnosis?: No VTE Prior VTE?: No VTE Risk Level:: Medical - moderate - high VTE Device Contraindication: N/A - Device Ordered VTE Drug Contraindication: Treatment Not Indicated
[2020-10-11] MEDS: Lactated Ringers 1,000 ML 100 ML IVCONT (13:55)
[2020-10-11 15:48] VITALS: BP 124/68; PULSE 83; RESP 18; TEMP 36.7; O2SAT 97
[2020-10-11] MEDS: predniSONE 10 MG TABLET 50 MG PO ×2 (17:12→23:54)
[2020-10-12] VITALS: BP 135/84; PULSE 73; RESP 18; TEMP 36.4; O2SAT 99
[2020-10-12] MEDS: HYDROmorphone HCl 0.5 MG/0.5 ML SYRINGE 1 MG IVPUSH ×2 (03:31→07:15)
[2020-10-12 03:48] VITALS: BP 153/77; PULSE 71; RESP 16; TEMP 36.9; O2SAT 97
[2020-10-12] MEDS: diphenhydrAMINE HCL 25 MG TABLET 50 MG PO (06:25)
[2020-10-12] MEDS: predniSONE 10 MG TABLET 50 MG PO (06:25)
[2020-10-12] MEDS: 0.9 % Sodium Chloride Flush 3 ML SYRINGE IVFLUSH (07:15)
[2020-10-12 07:23] VITALS: BP 151/79; PULSE 65; RESP 16; TEMP 36.3; O2SAT 100
[2020-10-12] MEDS: iohexoL 350 MG/ML 100 ML INFUS..BTL IV (09:57)
[2020-10-12 10:02] VITALS: BMI 20.5
--- NOTE | 2020-10-12 11:04 | PM.DS ---
DS: Providers Provider Date of Service: 10/12/20 Date of admission: 10/08/20 13:55 Primary care physician: Unknown Physician Consults: 10/08/20 14:00 Consult to Urology Routine Consulting Provider: Dale Shaw Reason for consultation: flank pain, ruptured cyst vs stone 10/11/20 09:05 Consult to Nephrology Routine Consulting Provider: Ankush Galvez Reason for consultation: renal cysts Has provider been notified: No 10/11/20 10:52 Consult to Nephrology Routine Consulting Provider: Carlos Schwartz Reason for consultation: polycystic renal disease Has provider been notified: No Discharging clinician: Abigail Dumont DS: Summary Hospital Course Hospital Course: HP as per admitting provider This is a 55 yo F with a PMH as outlined below who presents to the hospital with complaints of L flank pain of 3 days duration. She reports that she was in her usual state of health, but about 3 days prior to admission, she noticed that she started having L flank discomfort which progressed over the subsequent days to the point that she was unable to keep anything down and was laying in bed. At the urging of her boyfriend (who is bedside), she came to the emergency room. She denies any associated dysuria, urgency, frequecy. She denies any hematuria. She denies any abodminal pain. She does endorse nausea and vomiting, which started as her pain severity progressed. She endorses subjective fevers (which she reports she has when she is in pain) and diarrhea (which she endorses is chronic secondary to her IBS). Patients work up in the ED revealed a leukocytosis of 18k with a left shift. Her BMP was essentially benign. She underwent a CT scan of the abdomen and pelvis which showed her known polycystic kidneys. There was no urteral stones, dilatation or hydronephrosis. Mild perinephric stranding was also noted (see full report). The ED team discussed the case d/w Urology who felt possibility of a ruputured cyst with hemorrhage. Despite 3 doses of IV narcotics, she felt no pain relief. She will be admitted for further pain management as well the possibility of concurrent pyelonephritis / cyst hemorrhage . Intractable abdominal pain, possibly secondary to cyst rupture but more severe in nature. Treated with IV pain medication, IV fluids. Symptoms subsided and patient feels much better today UCx negative, BCx negative, seen by urology. Time Spent with Patient Time attestation: Total time spent providing and/or coordinating discharge services: Discharge coordination time: Greater than 30 minutes Quality: Stroke Does the patient have a stroke diagnosis?: No Physical Exam Vital Signs: Vital Signs: Last Vital Signs Temp 97.3 F 10/12/20 07:23 Pulse 65 10/12/20 07:23 Resp 16 10/12/20 07:23 BP 151/79 H 10/12/20 07:23 Pulse Ox 100 10/12/20 07:23 Body Mass Index 20.5 Appearing in no acute distress head is normocephalic atraumatic eyes pupils are PERRLA sclera is anicteric mouth throat mucous membranes are intact and moist neck is supple no lymphadenopathy, no JVD noted lung sounds are clear to auscultation heart regular rate rhythm, clear S1, S2 positive bowel sounds, abdomen is soft, nontender neuro patient is alert x3, no focal deficits DS: Data Data Completed and Pending Labs on day of discharge: Preliminary micro results at discharge 10/08/20 08:04 Blood Culture - Preliminary Blood - Venous No growth after 48 hours. 10/08/20 08:04 Blood Culture - Preliminary Blood - Venous No growth after 48 hours. Discharge Plan Discharge Anticipated Discharge Date/Time: 10/12/20 10:41 Patient Disposition: Home, Self-Care Discharge Diagnosis: Intractable pain secondary to ruptured cyst Referrals: Physician,Unknown [Primary Care Provider] - 1 Week Discharge Medications: New docusate sodium [Colace] 100 mg capsule 100 mg PO BID PRN (Reason: constipation ) Qty: 60 RF: 0 ondansetron HCl [Zofran] 4 mg tablet 8 mg PO Q8H PRN (Reason: nausea and vomiting) 10 Days Qty: 30 RF: 0 cefuroxime axetil 500 mg tablet 500 mg PO BID Qty: 20 RF: 0 Continued valacyclovir 1 gram tablet 1 tab PO DAILY RF: 0 clonazepam 1 mg tablet 0.5 mg PO BEDTIME PRN (Reason: Insomnia) RF: 0 bupropion HCl 100 mg tablet sustained-release 12 hr 1 tab PO BEDTIME RF: 0 folic acid 1 mg tablet 1 tab PO DAILY RF: 0 lorazepam 1 mg tablet 1 tab PO DAILY PRN (Reason: Anxiety) RF: 0 benazepril 40 mg tablet 1 tab PO DAILY RF: 0 bupropion HCl 150 mg tablet extended release 24 hr 1 tab PO DAILY RF: 0 tolvaptan 15 mg tablet 2 tab PO BID RF: 0 cyclobenzaprine 10 mg Tablet 10 mg PO BEDTIME PRN (Reason: Cramps) RF: 0 zolmitriptan 5 mg tablet 5 mg PO DAILY PRN (Reason: Migraine Headache) RF: 0 Proferrin ES 12 mg Tablet 12 mg PO DAILY RF: 0 No Action hydromorphone [Dilaudid] 2 mg tablet 2 mg PO Q8H PRN (Reason: pain) 7 Days Qty: 20 RF: 0 Discharge Orders: Discharge Order (Routine); Ordered 10/12/20 Ordered By: Abigail Dumont Diet: advance to usual diet Activity on Discharge: As tolerated Stand Alone Forms: Patient Portal Discharge page Care Plan Goals: Complete resolution of pain Health Concerns: Intractable pain secondary to ruptured cyst Plan of Treatment: Follow up with your auto claim representative as needed Assessment: See discharge summary Discharge Date/Time: 10/12/20 11:45
--- NOTE | 2020-10-12 11:07 | PC.NURSE ---
Skin assessment completed today. Patient has no skin issues noted at this time. Patient can move herself when in bed.
--- NOTE | 2020-10-12 11:28 | PM.CNNEP ---
History of Present Illness Reason for Consult Consult date: 10/12/20 Reason for consult: PKD admitted with left flank pain Chief Complaint Chief complaint: Intractable pain History of Present Illness Narrative: pt with a h/o ADPKD followed by my partner Dr Carlos Schwartz is admitted for left flank pain pt denies fevers or urinary symptoms denies gross hematuria work up so far unrevealing excelpt increased perirenal inflammatory changes around left kidney. Review of Systems Review of Systems Yes all other systems are reviewed and are negative PMFSH Past Medical History Medical History (Updated 10/11/20 @ 09:10 by Dale Shaw MD) 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 Bipolar disorder Brain aneurysm Hypertension Liver cyst Nephrolithiasis Relapsing remitting multiple sclerosis Vitamin D deficiency Family History Family History (Updated 10/08/20 @ 14:31 by Adrian Gil MD) Other ADPKD (autosomal dominant polycystic kidney disease) Social History Social History Household Members: Spouse and Friend(s) Housing: House Alcohol intake: never Patient Tobacco Use Status: Current everyday Tobacco user Smoked in Last 30 Days: Yes Patient Interested in Nicotine Replacement: No Use of substances other than those prescribed or required for medical reasons: No Currently Displaying Signs/Symptoms of Drug Intoxication Withdrawal: No Have you been hit, kicked, punched, or otherwise hurt by someone within the past year? If so, by whom?: No Do you feel safe in your current relationship?: Yes Is there a partner from a previous relationship who is making you feel unsafe now?: No Are you made to feel afraid or neglected: No Advance Directives: No Advance Directives Information Provided: Yes Do you have thoughts of harming others: None Do you have a plan to hurt others: No Plan Recently lost weight without trying: No Eating poorly because of decreased appetite: Yes : No service: No Current occupational status: unemployed Meds Allergies Allergy/AdvReac Type Severity Reaction Status Date / Time ciprofloxacin [From Cipro] AdvReac Severe Blister Verified 10/08/20 06:25 ferrous fumarate AdvReac Severe Anaphylaxis Verified 10/08/20 06:25 glatiramer (copolymer 1) AdvReac Severe Blister Verified 10/08/20 06:25 [From Copaxone] Sulfa (Sulfonamide AdvReac Severe Blister Verified 10/08/20 06:25 Antibiotics) bupropion [From Wellbutrin] AdvReac Mild Unknown Verified 10/08/20 06:25 Active Medications: Current Medications Generic Name Dose Route Start Last Admin Trade Name Jany PRN Reason Stop Dose Admin Acetaminophen 650 mg 10/08/20 14:00 10/08/20 20:45 Acetaminophen 325 Mg Tablet PO 650 mg Q6H PRN Administration Pain, Mild (Pain Scale 1-3) Bupropion HCl 150 mg 10/09/20 09:00 10/12/20 07:20 Bupropion Hcl Xl 150 Mg Tab.Er.24h PO Not Given DAILY SURYA Clonazepam 0.5 mg 10/08/20 15:36 Clonazepam 0.5 Mg Tablet PO BEDTIME PRN Insomnia Cyclobenzaprine HCl 10 mg 10/08/20 15:36 Cyclobenzaprine Hcl 10 Mg Tablet PO BEDTIME PRN Cramps Folic Acid 1 mg 10/09/20 09:00 10/12/20 07:20 Folic Acid 1 Mg Tablet PO Not Given DAILY [facility] Hydromorphone HCl 1 mg 10/11/20 09:06 10/12/20 07:15 Hydromorphone Hcl 0.5 Mg/0.5 Ml Syringe IVPUSH 1 mg Q3H PRN Administration Pain, Severe (Pain Scale 7-10) Protocol Melatonin 3 mg 10/10/20 13:12 Melatonin 3 Mg Tablet PO BEDTIME PRN Sleep Ondansetron HCl 4 mg 10/08/20 18:58 10/11/20 06:47 Ondansetron Hcl 4 Mg/2 Ml Vial IVPUSH 4 mg Q4H PRN Administration nausea/vomtiing Pharmacy Consult 1 each 10/08/20 14:47 Consult Rx Perform Med Rec MISCELLANE ONCE PRN Consult order Sodium Chloride 3 ml 10/08/20 16:00 10/12/20 07:15 0.9 % Sodium Chloride Flush 3 Ml Syringe IVFLUSH 3 ml QSHIFT [facility] Administration Valacyclovir HCl 1,000 mg 10/09/20 09:00 10/12/20 07:20 Valacycyclovir Hcl 1,000 Mg Tablet PO Not Given DAILY [facility] Home Medications Medication Instructions Recorded Confirmed Last Taken Type benazepril 40 mg tablet 1 tab PO DAILY 10/08/20 10/08/20 10/07/20 History bupropion HCl 100 mg tablet,12 hr 1 tab PO BEDTIME 10/08/20 10/08/20 10/07/20 History sustained-release bupropion HCl 150 mg 24 hr tablet, 1 tab PO DAILY 10/08/20 10/08/20 10/07/20 History extended release clonazepam 1 mg tablet 0.5 mg PO BEDTIME PRN 10/08/20 10/08/20 Unknown History cyclobenzaprine 10 mg tablet 10 mg PO BEDTIME PRN 10/08/20 10/08/20 Unknown History folic acid 1 mg tablet 1 tab PO DAILY 10/08/20 10/08/20 10/07/20 History iron heme polypeptide 12 mg tablet 12 mg PO DAILY 10/08/20 10/08/20 Unknown History (Joey GROSS) lorazepam 1 mg tablet 1 tab PO DAILY PRN 10/08/20 10/08/20 Unknown History tolvaptan 15 mg tablet 2 tab PO BID 10/08/20 10/08/20 10/07/20 History valacyclovir 1 gram tablet 1 tab PO DAILY 10/08/20 10/08/20 10/07/20 History zolmitriptan 5 mg tablet 5 mg PO DAILY PRN 10/08/20 10/08/20 Unknown History Physical Exam Vital Signs: Last Vital Signs Temp 97.3 F 10/12/20 07:23 Pulse 65 10/12/20 07:23 Resp 16 10/12/20 07:23 BP 151/79 H 10/12/20 07:23 Pulse Ox 100 10/12/20 07:23 Body Mass Index 20.5 oral moist mucosa lungs decreased BSs on bases s1s2 abd soft left CVA tenderness ext no edema neuro nonfocal Results Lab Results Result Diagrams: 10/11/20 04:42 10/11/20 04:42 Lab results: Chemistry 10/11/20 04:42 Sodium 139 Potassium 3.4 Carbon Dioxide 25 BUN 6 L Creatinine 1.04 Calcium 8.3 L Hematology 10/10/20 10/11/20 08:14 04:42 WBC 14.1 H 10.1 Hgb 11.0 L 10.5 L Plt Count 193 218 Assessment and Plan (1) Autosomal dominant polycystic kidney disease: Status: Acute (2) Intractable pain: Status: Acute pt likely has had a small bleed vs infection continue pain control outpt antibx preferably cipro with penetrance to renal cysts follow with Urologist for potential procedures ?drain cyst, per recent data consider PET Scan has higher sensitivity continue to hydrate resume ACEi for BP and renal protection follow with Dr Schwartz within a week of DC thank you Procedures Date of Service Date of Service: 10/12/20
--- NOTE | 2020-10-12 11:40 | MHC.CM.PN ---
CM MET W/PT TO REVIEW IMM, PT IN [facility] REPORTING SHE IS READY FOR D/C AND WILL CALL [facility] FOR TRANSPORT. PER PREVIOUS CM NOTE, ISSUE W/OBTAINING MED FROM PHARMACY RESOLVED.
--- NOTE | 2020-10-12 13:11 | P.PNUR_ITS ---
Subjective Subjective Date of Service: 10/12/20 Interval history: Discussed CT scan Rxed ana and arie Has stranding around left kideny consistent with cyst rupture Physical Exam Vital Signs: Vital Signs: Last Vital Signs Temp 97.3 F 10/12/20 07:23 Pulse 65 10/12/20 07:23 Resp 16 10/12/20 07:23 BP 151/79 H 10/12/20 07:23 Pulse Ox 100 10/12/20 07:23 Body Mass Index 20.5 Const: General: cooperative, healthy appearing, comfortable and no acute distress Orientation/consciousness: patient oriented x3 HENMT: Face and sinus: Yes normal facial exam Mouth: moist mucous membranes Neck: Neck: Yes normal visual inspection, Yes full ROM and Yes trachea midline Chest: Chest palpation & inspection: normal inspection of the chest Resp: Effort & Inspection: normal respiratory effort, able to speak in compl ete sentences and no respiratory distress GI: Inspection: Yes normal to inspection Back/Spine/Pelvis: Cervical Spine: normal cervical lordosis Thoracic/Lumbar Spine: thoracic and lumbar spine normal to inspection Skin: General skin exam: no rashes or lesions noted Neuro: General: patient oriented x3, gait normal, tone normal and moves all extremities Extrem: General: Yes normal to inspection and Yes capillary refill normal Urology Results Labs CBC & Chem 7: 10/11/20 04:42 10/11/20 04:42 Progress Note: A&P Assessment and plan (1) Autosomal dominant polycystic kidney disease: Status: Acute (2) Intractable pain: Status: Acute Assessment and Plan: Oral pain medications Time Spent With Patient Time: Total time spent is greater than 50% in coordination of care (as documented) at patient's floor/unit and/or counseling patient: Time with patient: less than 15 minutes Progress Note: Quality Stroke Does the patient have a stroke diagnosis?: No
== END 2020-10-12 11:45 | disposition home or self-care (01) | DRG 700 ==
LOC: HO.ED 09:57 → HO.EDOVER 14:51 → HO.S3 15:03
PROVIDERS: Physician Assistant Medical; Student in an Organized Health Care Education/Training Program; Admitting Provider Family Medicine; Emergency Provider Emergency Medicine; Visit Provider Family Medicine
DX: Q61.2 Polycystic kidney, adult type (principal); F31.9 Bipolar disorder, unspecified; F17.210 Nicotine dependence, cigarettes, uncomplicated; I12.9 Hypertensive chronic kidney disease with stage 1 through stage 4 chronic kidney disease, or unspecified chronic kidney disease; Z71.6 Tobacco abuse counseling; K58.0 Irritable bowel syndrome with diarrhea; N18.30 Chronic kidney disease, stage 3 unspecified; Z20.822 Contact with and (suspected) exposure to COVID-19; Z88.2 Allergy status to sulfonamides; Z79.899 Other long term (current) drug therapy
CPT/HCPCS: 36415; 74176; 74177; 80048; 80053; 81001; 83605; 83690; 85025; 85027; 87040; 87086; 87635; 96361; 96365; 96375; 96376; 99285; J0696; J1170; J2405; J2550; J3010; Q0163; Q9967

== ENCOUNTER 2024-02-18 13:03 | Outpatient (AMB) | payer MEDICARE, MEDICAID, SELFPAY ==
--- NOTE | 2024-02-18 13:16 | MHC.PC.OV ---
Vital Signs 02/18/24 13:21 Height 5 ft 5 in Weight 111 lb 4 oz BMI 18.5 BP 102/68 Blood Pressure Location Lt brachial Pulse 78 Pulse Source Pulse Oximeter Pulse Oximetry (%) 98 Oxygen Delivery Method Room Air Intake Visit Reasons: [facility]-PE Intake Note: New patient visit Allergies COVID-19 vacc, bv (Orig, Omicron BA.4/5) (Pfizer) [From Pfizer COVID Bival(12y up)(PF)] Allergy (Severe, Verified 02/18/24 13:41) Difficulty Breathing menthol [From Icy Hot] Allergy (Unknown, Verified 02/18/24 13:41) Unknown methyl salicylate [From Icy Hot] Allergy (Unknown, Verified 02/18/24 13:41) Unknown ciprofloxacin [From Cipro] Adverse Reaction (Severe, Verified 10/08/20 06:25) Blister ferrous fumarate Adverse Reaction (Severe, Verified 10/08/20 06:25) Anaphylaxis glatiramer (copolymer 1) [From Copaxone] Adverse Reaction (Severe, Verified 10/08/20 06:25) Blister Sulfa (Sulfonamide Antibiotics) Adverse Reaction (Severe, Verified 10/08/20 06:25) Blister bupropion [From Wellbutrin] Adverse Reaction (Mild, Verified 10/08/20 06:25) Unknown contrast dye Allergy (Unknown, Uncoded 02/18/24 13:41) Unknown Tobacco use date assessed: 02/18/24 Dental Screening Dental Screen Date: 02/18/24 Did you have a dental visit in the last 12 months?: Yes Did you have a dental problem in the last 6 months where you did not have access to dental care?: No Was dental information given to patient?: Patient has dentist HPI HPI Comments History of Present Illness Details The patient is a 59-year-old female with a past medical history of autosomal dominant polycystic kidney disease, chronic pain, bipolar disorder, PTSD, insomnia, hypertension, remitting multiple sclerosis, lung nodule, Johnnie Danlos presenting to [facility]. She is transferring from [facility] CV: On amlodipine, benazepril. Has seen cardiology in past. Had echocardiogram. MSK-Currently with neck and bilateral shoulder pain -Rheumatology Dr Serrano -[facility] -PT recommended. Neurologic -Dr Kitchen follows for MS. Rituxan 1000mg iv q6-9 months (start 12/23). IV corticosteroids if relapses. Immunology-Follows Dr Chawla A/I -[facility] -[facility] GI: IBS, SIBO. Follows with gastroenterology Dr Rojas Testing for ASD upcoming this month-[facility] Psychological Testing Colonoscopy ROS CONSTITUTIONAL: Denies weight loss, fever and chills. HEENT: Denies changes in vision and hearing. RESPIRATORY: Denies SOB and cough. CV: Denies palpitations and CP GI: Denies abdominal pain, nausea, vomiting and diarrhea. : Denies dysuria and urinary frequency. MSK: Denies new myalgia and joint pain. SKIN: Denies rash and pruritus. NEUROLOGICAL: Denies headache PSYCHIATRIC: Denies recent changes in mood. PHYSICAL EXAM: GENERAL: Alert and oriented x 3. NAD EYES: EOMI. Anicteric. HENT: Moist mucous membranes. No scleral icterus. No cervical lymphadenopathy. LUNGS: Clear to auscultation bilaterally. CARDIOVASCULAR: Regular rate and rhythm. No murmur. No JVD. ABDOMEN: Soft, non-tender +bs EXTREMITIES: No edema. Non-tender. SKIN: No rashes or lesions. Warm. NEUROLOGIC: No focal neurological deficits. CN II-XII grossly intact PSYCHIATRIC: Cooperative. Appropriate mood and affect [facility] Medical History (Updated 02/18/24 @ 14:27 by Parisa Paez MD) Liver cyst Bipolar disorder Nephrolithiasis Vitamin D deficiency Abdominal migraine Brain aneurysm Hypertension Relapsing remitting multiple sclerosis Autosomal dominant polycystic kidney disease Renal cyst, hoh, hemorrhage Structural abnormality of kidney Family History (Updated 02/18/24 @ 13:57 by Letha Martini [facility]) Father Brain aneurysm Arthritis CAD (coronary artery disease) Basal cell carcinoma Prostate cancer Bladder cancer Colon cancer Cataract Diverticulitis Heart disease Hyperlipidemia Kidney stone Mitral valve prolapse History of rectal polyps Shingles Stroke Mother Brain aneurysm Arthritis H/O heart artery stent Breast cancer Cataract Hernia Kidney stone Osteoporosis Periodontal disease Thyroid disease Maternal Grandmother Abdominal aneurysm Breast cancer Cataract Diabetes Osteoporosis Paternal Aunt Arthritis Stroke Paternal Grandmother Arthritis Heart disease Congestive heart failure Sister Fibromyalgia History of IBS Periodontal disease Shingles Maternal Grandfather Periodontal disease Stroke Maternal Uncle Periodontal disease Other ADPKD (autosomal dominant polycystic kidney disease) FHx: mental illness HTN (hypertension) Rheumatoid arthritis Substance abuse Social History Household Members: Spouse and Friend(s) Housing: House Alcohol intake: never Comment: patient feeling dizzy, encouraged to ask for assistance OOB Patient Tobacco Use Status: Former Tobacco user Tobacco use type: Cigarette Cigarette Packs Per Day: 1 Years Smoked: 12 e-Cigarette/Vaping Use: Former Use Second Hand Smoke Exposure: No service: No Current occupational status: unemployed and disabled Cognitive needs: No Hearing needs: No Vision needs: Yes (glassesf) Questionnaire PHQ-9 Over the last 2 weeks, how often have you been bothered by any of the following problems? 1. Little interest or pleasure in doing things: nearly every day 2. Feeling down, depressed, or hopeless: more than half the days 3. Trouble falling or staying asleep, or sleeping too much: more than half the days 4. Feeling tired or having little energy: nearly every day 5. Poor appetite or overeating: several days 6. Feeling bad about yourself - or that you are a failure or have let yourself or your family down: several days 7. Trouble concentrating on things, such as reading the newspaper or watching television: nearly every day 8. Moving or speaking so slowly that other people could have noticed. Or the opposite - being so fidgety or restless that you have been moving around a lot more than usual: more than half the days 9. Thoughts that you would be better off or of hurting yourself in some way: not at all Total score: 17 Depression Screening Interpretation: Positive Depression Screening Done: Yes 87980 - PHQ-9 Billing: Yes Source: Developed by Drs. Yash Jason, Sherri Hudson, Hardik Castillo and colleagues, with an educational eric from [employer]. Thrive Questionnaire Date Thrive assessed: 02/18/24 I am a: Patient What is your living situation today?: I have a steady place to live Within the past 12 months, did the food you bought not last and you didn't have the money to get more?: I choose not to answer this question Within the past 12 months, did you worry whether your food would run out before you got money to buy more?: I choose not to answer this question Do you have trouble paying for medicines?: I choose not to answer this question Do you have trouble getting transportation to medical appointments?: I choose not to answer this question Do you have trouble paying your heating and electricity bill?: Yes Do you have trouble taking care of your child, family member or friend?: I choose not to answer this question Do you have trouble with day-to-day activities such as bathing, preparing meals, shopping, managing finances, etc.?: I choose not to answer this question Are you currently unemployed and looking for a job?: I choose not to answer this question Are you interested in more education?: I choose not to answer this question Please select the resources that you would like help with: None Currently or been in a relationship where the following occur: I choose not to answer THRIVE Score: 1 AUDIT C Alcohol Use Questionnaire (AUDIT-C) 1. How often do you have a drink containing alcohol?: Monthly or less 2. How many drinks containing alcohol do you have on a typical day when you are drinking?: 1 or 2 3. How often do you have six or more drinks on one occasion?: Never Total Score: 1 MARJ-7 AMB Questionnaire MARJ-7 Date MARJ - 7 assessed: 02/18/24 Feeling nervous, anxious, or on edge: 3 = Nearly every day Not being able to stop or control worryin = Nearly every day Worrying too much about different things: 3 = Nearly every day Trouble relaxin = Nearly every day Being so restless that it is hard to sit still: 3 = Nearly every day Becoming easily annoyed or irritable: 3 = Nearly every day Feeling afraid as if something awful might happen: 3 = Nearly every day Total MARJ-7 score (0-4 normal; 5-9 mild; 10-14 moderate; 15-21 severe): 21 Source: Developed by Drs. Yash Jason, Sherri Hudson, Hardik Castillo and colleagues, with an educational eric from [employer]. 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 Autosomal dominant polycystic kidney disease Q61.2 Relapsing remitting multiple sclerosis G35 Bipolar affective disorder in remission F31.70 Active/Remission status: in remission of unspecified degree Primary hypertension I10 Hypertension type: primary hypertension Additional Codes MARJ-7 Assessment Billing - MARJ-7 Assessment Tool: MARJ-7 Assessment 60221 ([id number]) PHQ-9 - 65077 - PHQ-9 Billing: Yes ([id number]) Time Spent (min) 65 Assessment & Plan Assessment & Plan (1) Johnnie-Danlos disease: Code(s): Q79.60 - Johnnie-Danlos syndrome, unspecified Category: Medical Plan: continue follow up rheum, EDS clinic (2) Autosomal dominant polycystic kidney disease: Code(s): Q61.2 - Polycystic kidney, adult type Category: Medical Plan: continue follow up nephrology (3) Relapsing remitting multiple sclerosis: Code(s): G35 - Multiple sclerosis Category: Medical Plan: continue neurology follow up (4) Bipolar disorder: Code(s): F31.9 - Bipolar disorder, unspecified Category: Medical Qualifiers: Active/Remission status: in remission of unspecified degree Qualified Code(s): F31.70 - Bipolar disorder, currently in remission, most recent episode unspecified Plan: Controlled on current medications. Follows with [facility] in [place] (5) Hypertension: Code(s): I10 - Essential (primary) hypertension Category: Medical Qualifiers: Hypertension type: primary hypertension Qualified Code(s): I10 - Essential (primary) hypertension Plan: well controlled on current medication Plan 59 y/o to establish care. Past medical, surgical, social and family history reviewed Orders: Orders PT Evaluation and Treatment Today M25.511 - Pain in right shoulder, M25.512 - Pain in left shoulder, Q79.60 - Johnnie-Danlos syndrome, unspecified MM screening mammo BI Today Z12.31 - Encounter for screening mammogram for malignant neoplasm of breast Lipid Panel Today Z13.220 - Encounter for screening for lipoid disorders Medications: Discontinued cefuroxime axetil Discontinued Reason: Patient no longer taking 500 mg PO BID 20 tabs 0RF N12 - Tubulo-interstitial nephritis, not specified as acute or chronic docusate sodium (Colace) Discontinued Reason: Patient no longer taking 100 mg PO BID PRN 60 caps 0RF constipation ondansetron HCl (Zofran) take 30 min prior to pain medications Discontinued Reason: Patient no longer taking 8 mg (2 x 4 mg) PO Q8H 10 days PRN 30 tabs 0RF nausea and vomiting
[2024-02-18 13:21] VITALS: BP 102/68; PULSE 78; O2SAT 98; BMI 18.5
== END 2024-02-18 14:05 | disposition home or self-care (01) ==
PROVIDERS: PCP Internal Medicine; Visit Provider Internal Medicine
DX: Q79.60 Ehlers-Danlos syndrome, unspecified (principal); Q61.2 Polycystic kidney, adult type; G35 Multiple sclerosis; F31.70 Bipolar disorder, currently in remission, most recent episode unspecified; I10 Essential (primary) hypertension

== ENCOUNTER → 2024-02-18 13:03 | Outpatient (BNVA) | payer MEDICARE, MEDICAID, SELFPAY | PROVIDERS: Visit Provider Internal Medicine | DX: G35 Multiple sclerosis (principal); F31.70 Bipolar disorder, currently in remission, most recent episode unspecified; I10 Essential (primary) hypertension; Q61.2 Polycystic kidney, adult type; Q79.60 Ehlers-Danlos syndrome, unspecified; Z79.899 Other long term (current) drug therapy | CPT/HCPCS: 96127; 99202 ==